=== PATIENT | female | born 1990 | race Caucasian/White ===

== ENCOUNTER → 2020-06-19 13:28 | Outpatient (CLI) | payer BC, SELFPAY ==
--- NOTE | ~2020-06-19 | US_ITS ---
EXAMINATION: US OB <= 14 weeks fetus DATE: 06/19/2020 13:51 INDICATION: Uncertain dating of during first trimester. Mild cramping. TECHNIQUE: Real-time pelvic ultrasound utilizing transabdominal probe was performed. The kaleb novak radiologist was not present for the study. COMPARISON: None. FINDINGS: The uterus measures 14.4 x 6.7 x 6.2 cm. There is an intrauterine gestational sac. A yolk sac and fe argenis pole are identified. The crown rump length measures 5.3 cm, which correlates with an estimated ge stational age of 12 weeks and 0 days. heart motion is identified measuring 187 beats per minute (bpm) by M-mode Doppler. The right ovary measures 4.5 x 4.2 x 3.6 cm. The left ovary measures 2.6 x 2.3 x 2.0 cm. There is no free fluid in the pelvis. IMPRESSION: 1. Single living fetus with heart rate of 187 bpm. 2. Gestational age by ultrasound of 12 weeks 0 day(s) +/- 8 day(s) with ultrasound estimated date of delivery (ANNMARIE) of 01/01/2021. Reviewed, dictated and finalized at location A. SHOP SUPERVISOR IMPRESSION: 1. Single living fetus with heart rate of 187 bpm. 2. Gestational age by ultrasound of 12 weeks 0 day(s) +/- 8 day(s) with ultras ound estimated date of delivery (ANNMARIE) of 01/01/2021.
== END ==
PROVIDERS: PCP Physician Assistant; Visit Provider Obstetrics & Gynecology
DX: Z36.87 Encounter for antenatal screening for uncertain dates (principal); Z3A.12 12 weeks gestation of pregnancy
CPT/HCPCS: 76801

== ENCOUNTER 2020-08-04 13:42 | Outpatient (CLI) | payer BC, SELFPAY ==
--- NOTE | ~2020-08-04 | US_ITS ---
EXAMINATION: US OB >= 14 weeks Fetus DATE: 08/04/2020 14:27 INDICATION: Second trimester anatomic survey TECHNIQUE: Real-time ultrasound of the pelvis was performed. COMPARISON: None. FINDINGS: There is a single living fetus in vertex presentation. The placenta is posterior and 4 mm from the in ternal cervical os. heart rate is 145 beats per minute (bpm). cardiac activity and movement are noted. The amniotic fluid index is subjectively normal. The cerebellum, cisterna magna, upper lip, spine, heart, stomach, diaphragm, and kidneys are suboptim ally evaluated due to body habitus and early gestational age. The the ventricles, bladder, cord inser tion, and three-vessel cord appear normal. The following biometric data were obtained: Biparietal diameter (BPD): 4.1 cm; head circumference (HC): 15.4 cm; abdominal circumference (AC): 13 .2 cm; femur length (FL): 3.3 cm. These measurements are concordant. Estimated weight is 294 g +/- 44 g, which correlates with the 92nd percentile when 01/01/2021 is used as estimated date of delivery. As single measurements, these parameters are each equal to the following estimated gestational ages w ith ranges of +/- 2 standard deviations: BPD: 18 weeks 4 days ( 16 weeks 6 days - 20 weeks 2 days). HC: 18 weeks 3 days ( 17 weeks 0 days - 19 weeks 6 days). AC: 18 weeks 5 days ( 16 weeks 5 days - 20 weeks 5 days). FL: 20 weeks 4 days ( 18 weeks 6 days - 22 weeks 3 days). estimated gestational age based solely on measurements from this exam is 19 weeks 1 days +/- 1 weeks 2 days. IMPRESSION: 1. Single living fetus in vertex presentation. 2. Estimated weight is 294 g +/- 44 g, which correlates with the 92nd percentile when 01/01/2021 is used as estimated date of delivery. 3. Low-lying placenta. 4. Incomplete evaluation of several anatomic structures. Reviewed, dictated and finalized at location A. TS ANNOUNCER IMPRESSION: 1. Single living fetus in vertex presentation. 2. Estimated weight is 294 g +/- 44 g, which correlates with the 92nd per centile when 01/01/2021 is used as estimated date of delivery. 3. Low-lying placenta. 4. Incomplete evaluation of several anatomic structures.
== END 2020-08-04 13:43 ==
PROVIDERS: PCP Physician Assistant; Visit Provider Obstetrics & Gynecology
DX: O44.42 Low lying placenta NOS or without hemorrhage, second trimester (principal); Z3A.19 19 weeks gestation of pregnancy
CPT/HCPCS: 76805

== ENCOUNTER 2020-09-04 13:29 | Outpatient (CLI) | payer BC, SELFPAY ==
--- NOTE | ~2020-09-04 | US_ITS ---
EXAMINATION: US OB follow up DATE: 09/04/2020 14:01 INDICATION: Low-lying placenta, incomplete anatomic survey TECHNIQUE: Real-time ultrasound of the pelvis was performed. The interpreting radiologist was not pre sent for the study. COMPARISON: 08/04/2020 FINDINGS: There is a single living fetus in breech presentation. The placenta is posterior and 4.8 cm from the internal cervical os. cardiac activity and movement are noted. heart rate is 147 beats per minute (bpm). The amniotic fluid index is subjectively normal. The the cerebellum a nd cisterna magna, spine, and kidneys appear normal. A four-chamber heart is demonstrated. The ventri cular outflow tracts are not well seen due to body habitus and position. The following biometric data were obtained: Biparietal diameter (BPD): 5.7 cm; head circumference (HC): 21.3 cm; abdominal circumference (AC): 18 .8 cm; femur length (FL): 4.3 cm. These measurements are concordant. Estimated weight is 637 g +/- 95 g, which correlates with the 83rd percentile when 01/01/2021 is used as estimated date of delivery. As single measurements, these parameters are each equal to the following estimated gestational ages w ith ranges of +/- 2 standard deviations: BPD: 23 weeks 3 days ( 21 weeks 5 days - 25 weeks 1 days). HC: 23 weeks 3 days ( 21 weeks 6 days - 24 weeks 6 days). AC: 23 weeks 5 days ( 21 weeks 4 days - 25 weeks 5 days). FL: 24 weeks 2 days ( 22 weeks 2 days - 26 weeks 3 days). estimated gestational age based solely on measurements from this exam is 23 weeks 5 days +/- 1 weeks 5 days. IMPRESSION: 1. Single living fetus in breech presentation. 2. Resolution of low-lying placenta. 3. Estimated weight is 637 g +/- 95 g, which correlates with the 83rd percentile when 01/01/2021 is used as estimated date of delivery. 4. Visualized cerebellum, cisterna magna, kidneys, and spine appear normal. Four-chamber heart identi fied. Reviewed, dictated and finalized at location A. ATIENT PHLEBOTOMIST IMPRESSION: 1. Single living fetus in breech presentation. 2. Resolution of low-lying placenta. 3. Estimated weight is 637 g +/- 95 g, which correlates with the 83rd per centile when 01/01/2021 is used as estimated date of delivery. 4. Visualized cerebellum, cisterna magna, kidneys, and spine appear normal. Fou r-chamber heart identified.
== END 2020-09-04 13:30 ==
PROVIDERS: PCP Physician Assistant; Visit Provider Obstetrics & Gynecology
DX: Z36.2 Encounter for other antenatal screening follow-up (principal); O44.42 Low lying placenta NOS or without hemorrhage, second trimester; Z3A.32 32 weeks gestation of pregnancy
CPT/HCPCS: 76816

== ENCOUNTER 2020-12-08 17:12 | Outpatient (RCR) | payer BC, SELFPAY ==
[2020-12-08 22:12] VITALS: BP 128/73; PULSE 98
== END 2021-01-22 11:10 | disposition home or self-care (01) ==
LOC: ANHOBOP 17:12
PROVIDERS: PCP Physician Assistant; Visit Provider Obstetrics & Gynecology
DX: O41.03X0 Oligohydramnios, third trimester, not applicable or unspecified (principal); Z3A.38 38 weeks gestation of pregnancy
CPT/HCPCS: 59025

== ENCOUNTER 2020-12-18 17:30 | Inpatient (IN) | payer BC, SELFPAY ==
[2020-12-18] VITALS (50 sets, daily range): BP systolic 111–154; BP diastolic 48–89; PULSE 80–119; TEMP 36.6–37; O2SAT 87–100; BMI 54.5
--- OUTSIDE RECORDS SUMMARY | 2020-12-18 17:43 | XMS_ITS ---
:1990 Author Care Team Providers Name Role Phone Shyla Primary Care Provider Unavailable Allergies Code Code System Name Reaction Severity Status Onset NKDA ? Medications Name Status Start Date Stop Date ? ? amoxicillin 250 mg/5 mL oral suspension Active ? Not available amoxicillin 500 mg capsule Active ? Not a vailable TK 1 C PO TID amoxicillin 875 mg tablet Unknown ? Not av ailable TK 1 T PO Q 12 H amoxicillin 875 mg-potassium clavulanate Active ? Not available 125 mg tablet Carafate 100 mg/mL oral suspension Unknown ? Not available cephalexin 500 mg capsule Active ? Not av ailable ciprofloxacin 500 mg tablet Active ? Not available cyclobenzaprine 10 mg tablet Unknown ? Not available cyclobenzaprine 5 mg tablet Active ? Not available TK 1 T PO TID erythromycin 5 mg/gram (0.5 %) eye ointment Active ? Not available APPLY 1 2 INCH RIBBON TO THE LEFT LOWER EYELID THREE TIMES SHAWN Y FOR 7 DAYS hydrocodone 7.5 mg-acetaminophen 325 mg/15 mL oral solution Acti ve ? Not available TAKE 5 15MLS BYMOUTH EVERY 6 HOURS NEEDED ibuprofen 600 mg tablet Active ? Not avai lable levofloxacin 500 mg tablet Unknown ? Not a vailable medroxyprogesterone 5 mg tablet Active ? Not available metformin ER 500 mg tablet,extended Active ? Not available release 24 hr metformin ER 750 mg tablet,extended Unknown ? Not available release 24 hr omeprazole 40 mg capsule,delayed release Unknown ? Not available
--- OUTSIDE RECORDS SUMMARY | 2020-12-18 17:43 | XMS_ITS ---
:1990 Author Care Team Providers Name Role Phone VIKTORIYA ARENAS BENJY Primary Care Provider [phone] Allergies Code Code System Name Reaction Severity Status Onset NKDA ? Medications Name Status Start Date Stop Date ? ? [employer] Completed ? 09/13/2019 qd amoxicillin 250 mg/5 mL oral suspension Completed ? 05/22/2020 amoxicillin 500 mg capsule Completed ? 12/14 TK 1 C PO TID amoxicillin 875 mg tablet Completed ? 2016 TK 1 T PO Q 12 H amoxicillin 875 mg-potassium Active ? Not available clavulanate 125 mg tablet Carafate 100 mg/mL oral suspension Unknown ? Not available cephalexin 500 mg capsule Completed ? 2019 Take 1 capsule 3 times a day by oral route for 10 days. ciprofloxacin 500 mg tablet Completed ? 08/19 Claritin Completed ? 05/22/2020 takes daily cyclobenzaprine 5 mg tablet Completed ? 11/17 TK 1 T PO TID erythromycin 5 mg/gram (0.5 %) eye ointment Completed ? 05/22/2020 APPLY 1 2 INCH RIBBON TO THE LEFT LOWER EYELID THREE TIMES SHAWN Y FOR 7 DAYS hydrocodone 7.5 mg-acetaminophen 325 mg/15 mL oral solution Comp leted ? 05/22/2020 TAKE 5 15MLS BYMOUTH EVERY 6 HOURS NEEDED ibuprofen 600 mg tablet Completed ? 09/13/19 20 levofloxacin 500 mg tablet Unknown ? Not a vailable medroxyprogesterone 5 mg tablet Unknown ? Not available metformin ER 1,000 mg tablet,ext
--- OUTSIDE RECORDS SUMMARY | 2020-12-18 17:43 | XMS_ITS ---
:1990 Author Care Team Providers Name Role Phone Shyla Primary Care Provider Unavailable Allergies Code Code System Name Reaction Severity Status Onset NKDA ? Medications Name Status Start Date Stop Date ? ? amoxicillin 250 mg/5 mL oral suspension Active ? Not available amoxicillin 875 mg-potassium clavulanate Active ? Not available 125 mg tablet cephalexin 500 mg capsule Active ? Not av ailable ciprofloxacin 500 mg tablet Active ? Not available erythromycin 5 mg/gram (0.5 %) eye ointment Active ? Not available APPLY 1 2 INCH RIBBON TO THE LEFT LOWER EYELID THREE TIMES SHAWN Y FOR 7 DAYS hydrocodone 7.5 mg-acetaminophen 325 mg/15 mL oral solution Acti ve ? Not available TAKE 5 15MLS BYMOUTH EVERY 6 HOURS NEEDED ibuprofen 600 mg tablet Active ? Not avai lable ondansetron 4 mg disintegrating tablet Active ? Not available phenazopyridine 200 mg tablet Active ? No t available prednisone 10 mg tablet Active ? Not avai lable promethazine 25 mg tablet Active ? Not av ailable Problems No Known Problems Procedures Date Name Performed by ? 10/26/2019 Tonsillectomy (Surg) Information not robert ilable Results Lab Results None recorded. Past Encounters 11/06/2019 Chronic Tonsillitis Jack Mansfield MD: [address], [place] [address], Ph. 09/18/2019
[2020-12-18 19:31] LABS: Basophils Absolute Auto 0.1 K/mm3 (0.0-0.1); Basophils Percent Auto 0.3 % (0.2-1.2); Eosinophils Percent Auto 0.1 % (0-4.4); Hematocrit 38.8 % (37.0-47.0); Hemoglobin 12.5 g/dL (12.0-15.0); Immature Granulocyte Absolute 0.14 K/mm3 (0.00-0.031); Immature Granulocyte Percent A 0.6 % (0-0.5); Lymphocytes Absolute Auto 1.13 K/mm3 (0.9-3.2); Lymphocytes Percent Auto 5.1 % (18.3-44.2); Mean Corpuscular HGB Conc 32.2 g/dl (32-36); Mean Corpuscular Hemoglobin 29.3 pg (26-34); Mean Corpuscular Volume 90.9 fl (80-100); Monocytes Absolute Auto 0.9 K/mm3 (0.1-0.6); Monocytes Percent Auto 4.2 % (2.6-8.5); Neutrophils Absolute Auto 20.1 K/mm3 (1.3-6.7); Neutrophils Percent Auto 89.7 % (45.5-73.1); Platelet Count Result 285 k/mm3 (150-375); Red Blood Count 4.27 M/mm3 (4.2-5.4); Red Cell Distribution Width 14.6 % (11.5-14.5); White Blood Count 22.4 K/mm3 (4.5-10.0)
[2020-12-18 19:44] LABS: Alanine Aminotransferase 22 U/L (4-35); Albumin Level 3.9 g/dL (3.5-5.1); Alkaline Phosphatase 147 U/L (38-126); Anion Gap 9 mmol/L (8-16); Aspartate Amino Transferase 29 U/L (14-36); Bilirubin,Total 0.5 mg/dL (0.2-1.3); Blood Urea Nitrogen 8 mg/dL (7-17); Calcium 9.6 mg/dL (8.4-10.2); Carbon Dioxide 18 mmol/L (22-30); Chloride 108 mmol/L (98-107); Estimated Glomerular Filt Rate > 60; Glucose 84 mg/dL (65-105); Potassium 4.2 mmol/L (3.4-5.0); Sodium 135 mmol/L (137-145); Uric Acid 5.6 mg/dL (2.5-7.5)
[2020-12-18 20:10] LABS: Total Volume 24 Hour Urine 1900 ml
[2020-12-18 20:22] LABS: Total Protein Urine 24 Hr 247 mg/24hr (28-141); Total Protein Urine Random 13 mg/dL
[2020-12-18 20:23] LABS: Creatinine 24 Hour Urine 1.7 gm/24 (0.8-1.8); Creatinine Urine 89.6 mg/dL
[2020-12-18] MEDS: LACTATED RINGERS 1,000 ML 125 ML IV CONT ×3 (20:31→22:34)
[2020-12-18] MEDS: AMPICILLIN 2 GM/NS 100 ML 2 GM/100 ML BAG IVPB (20:32)
[2020-12-18] MEDS: OXYTOCIN 30 UNITS/NS 500 ML 30 UNITS/500 ML BAG IV CONT (20:33)
--- NOTE | 2020-12-18 21:09 | WPDANESEPPF ---
Anes - Initial Pre Proc Eval Procedure: labor epidural Date/Time: 12/18/20 21:09 Surgeon: Eldon Sun MD Pre Op Diagnosis: labor pain Pre Op Diagnosis: iol Patient Data Age: 30 Gender: F Height: Weight: Last Vital Signs Temp 36.6 C 12/18/20 20:40 Pulse 104 H 12/18/20 21:03 BP 154/70 H 12/18/20 21:03 Pulse Ox 100 12/18/20 21:07 Allergies Allergy/AdvReac Type Severity Reaction Status Date / Time No Known Allergies Allergy Unknown Unverified 10/25/14 10:41 Laboratory Tests 12/18/20 12/18/20 12/18/20 19:17 19:17 19:24 WBC RBC Hgb Hct MCV MCH MCHC RDW Plt Count MPV Immature Gran % (Auto) Neut % (Auto) Lymph % (Auto) Avery % (Auto) Eos % (Auto) Baso % (Auto) Lymph # (Auto) [place] # (Auto) Eos # (Auto) Baso # (Auto) Abs Immat Gran (auto) Absolute Neuts (auto) Absolute Nucleated RBC Nucleated RBC % Sodium Potassium Chloride Carbon Dioxide Anion Gap BUN Creatinine Estim Creat Clear Calc Estimated GFR Glucose Uric Acid Cancelled Calcium Total Bilirubin AST ALT Alkaline Phosphatase Total Protein Albumin U Random Total Protein 13 mg/dL mg/dL Ur 24 Hour Volume 1900 ml ml 1900 ml ml Urine Creatinine 89.6 mg/dL mg/dL Ur Creatinine 24 Hour 1.7 gm/24 gm/24 (0.8-1.8) Ur Total Protein 24 Hr 247 mg/24hr H mg/24hr (28-141) RPR Blood Type Antibody Screen 12/18/20 12/18/20 12/18/20 19:24 19:24 19:24 WBC 22.4 K/mm3 H K/mm3 (4.5-10.0) RBC 4.27 M/mm3 M/mm3 (4.2-5.4) Hgb 12.5 g/dL g/dL (12.0-15.0) Hct 38.8 % % (37.0-47.0) MCV 90.9 fl fl (80-100) MCH 29.3 pg pg (26-34) MCHC 32.2 g/dl g/dl (32-36) RDW 14.6 % H % (11.5-14.5) Plt Count 285 k/mm3 k/mm3 (150-375) MPV 10.0 fl fl (7.4-10.4) Immature Gran % (Auto) 0.6 % H % (0-0.5) Neut % (Auto) 89.7 % H % (45.5-73.1) Lymph % (Auto) 5.1 % L % (18.3-44.2) Avery % (Auto) 4.2 % % (2.6-8.5) Eos % (Auto) 0.1 % % (0-4.4) Baso % (Auto) 0.3 % % (0.2-1.2) Lymph # (Auto) 1.13 K/mm3 K/mm3 (0.9-3.2) Avery # (Auto) 0.9 K/mm3 H K/mm3 (0.1-0.6) Eos # (Auto) 0.0 K/mm3 K/mm3 (0-0.3) Baso # (Auto) 0.1 K/mm3 K/mm3 (0.0-0.1) Abs Immat Gran (auto) 0.14 K/mm3 H K/mm3 (0.00-0.031) Absolute Neuts (auto) 20.1 K/mm3 H K/mm3 (1.3-6.7) Absolute Nucleated RBC 0.0 K/mm3 K/mm3 (0.0-0.012) Nucleated RBC % 0.0 % % (0.0-0.2) Sodium Potassium Chloride Carbon Dioxide Anion Gap BUN Creatinine Estim Creat Clear Calc Estimated GFR Glucose Uric Acid Calcium Total Bilirubin AST ALT Alkaline Phosphatase Total Protein Albumin U Random Total Protein Ur 24 Hour Volume Urine Creatinine Ur Creatinine 24 Hour Ur Total Protein 24 Hr RPR Pending Blood Type A Positive Antibody Screen Negative 12/18/20 19:24 WBC RBC Hgb Hct MCV MCH MCHC RDW Plt Count MPV
--- NOTE | 2020-12-18 22:19 | LDADM ---
This patient, Anahi Mayes, was admitted to Labor/Delivery/Recovery 106 on 12/18/20 at 17:30. Plans for labor, pain management and were discussed with patient. Patient/family oriented to hospital policies and general routines including ID bracelet, bed and alarms, visiting hours, pain management, procedures, bathroom and other care routines, personal items, smoking policy, room service/diet and guest tray routines, security routines, and visiting hours. Patient/Family are encouraged to report perceived risks to care and to ask questions if they do not understand what they are told or what they should do. See OBIX for further documentation.
[2020-12-19] VITALS (34 sets, daily range): BP systolic 92–150; BP diastolic 46–98; PULSE 81–141; RESP 16–20; TEMP 36.6–37.2; O2SAT 98–100
[2020-12-19] MEDS: AMPICILLIN 1 GM/NS 50 ML 1 GM/50 ML BAG IVPB (00:17)
--- NOTE | 2020-12-19 01:18 | WPDOBADMIT ---
Obstetrics - Admit Note Admission Note: record reviewed. No pertinent additions to the history and/or any subsequent changes in the physical findings that are not consistent with the expected course of the were found. Additions to the history and/or subsequent changes in the physical findings follow. Patient saw MFM today and JARETT was 4.5 so they recommended [facility]. Patient on arrival for [facility] states SROM at 1030 am and kenzie all day. She was 7 cm on first check. Progressed on own without Pitocin.
--- NOTE | 2020-12-19 01:19 | P.PCNOB_ITS ---
OB - Delivery Note Procedure Delivery date: 12/19/20 Procedure: Intrapartal events: None Delivery monitor: external FHT and internal uterine Route of delivery: Laceration Description: Perineal - 2nd Degree Delivery repair: vicryl (3-0 vicryl) Specimen: Yes (placenta) Quantitative Blood Loss (ml): 225 Anesthesia type: Epidural Disposition: floor Seltzer Baby Date of : 12/19/20 Weeks of gestation at delivery: 37 gender: Male presentation: vertex position: Right Occiput Anterior Placenta delivery description: Spontaneous cord vessel description: 3 Vessels and Nuchal Cord (x 1 reduced)
--- NOTE | 2020-12-19 01:21 | PM.OBDSVD ---
DS: Admitting Diagnosis Admitting Diagnosis Admitting Diagnosis: IUP 37 5/7 weeks with SROM in active labor DS: Discharge Diagnosis Discharge Diagnosis (1) (normal spontaneous vaginal delivery): Code(s): O80 - Encounter for full-term uncomplicated delivery Status: Acute OB - DS: Summary OB Procedures : DOCUMENT CONTROL SUPERVISOR and PIH Mgmt OB Procedures Intrapartum: Spontaneous Vag Delivery OB Procedures: : None Peripartum Data Delivery Method: Natural Vaginal Laceration Description: Perineal - 2nd Degree complications: none Status at Discharge Functional status at discharge: independent ambulation Overall status at discharge: patient is progressing back to baseline Time Spent with Patient Time attestation: Total time spent providing and/or coordinating discharge services: DS: Data Data Completed and Pending Labs on day of discharge: Labs from last 24 hours 12/18/20 12/18/20 12/18/20 19:24 19:24 19:24 WBC RBC Hgb Hct MCV MCH MCHC RDW Plt Count MPV Immature Gran % (Auto) Neut % (Auto) Lymph % (Auto) [place] % (Auto) Eos % (Auto) Baso % (Auto) Lymph # (Auto) [place] # (Auto) Eos # (Auto) Baso # (Auto) Abs Immat Gran (auto) Absolute Neuts (auto) Absolute Nucleated RBC Nucleated RBC % Sodium 135 L Potassium 4.2 Chloride 108 H Carbon Dioxide 18 L Anion Gap 9 BUN 8 Creatinine 0.50 L Estim Creat Clear Calc Not Reportable Estimated GFR > 60 Glucose 84 Uric Acid 5.6 Calcium 9.6 Total Bilirubin 0.5 AST 29 ALT 22 Alkaline Phosphatase 147 H Total Protein 8.0 Albumin 3.9 U Random Total Protein Ur 24 Hour Volume Urine Creatinine Ur Creatinine 24 Hour Ur Total Protein 24 Hr RPR Pending Blood Type A Positive Antibody Screen Negative 12/18/20 12/18/20 12/18/20 19:24 19:24 19:17 WBC 22.4 H RBC 4.27 Hgb 12.5 Hct 38.8 MCV 90.9 MCH 29.3 MCHC 32.2 RDW 14.6 H Plt Count 285 MPV 10.0 Immature Gran % (Auto) 0.6 H Neut % (Auto) 89.7 H Lymph % (Auto) 5.1 L [place] % (Auto) 4.2 Eos % (Auto) 0.1 Baso % (Auto) 0.3 Lymph # (Auto) 1.13 [place] # (Auto) 0.9 H Eos # (Auto) 0.0 Baso # (Auto) 0.1 Abs Immat Gran (auto) 0.14 H Absolute Neuts (auto) 20.1 H Absolute Nucleated RBC 0.0 Nucleated RBC % 0.0 Sodium Potassium Chloride Carbon Dioxide Anion Gap BUN Creatinine Estim Creat Clear Calc Estimated GFR Glucose Uric Acid Cancelled Calcium Total Bilirubin AST ALT Alkaline Phosphatase Total Protein Albumin U Random Total Protein 13 Ur 24 Hour Volume 1900 Urine Creatinine Ur Creatinine 24 Hour Ur Total Protein 24 Hr 247 H RPR Blood Type Antibody Screen 12/18/20 19:17 WBC RBC Hgb Hct MCV MCH MCHC RDW Plt Count MPV Immature Gran % (Auto) Neut % (Auto) Lymph % (Auto) [place] % (Auto) Eos % (Auto) Baso % (Auto) Lymph # (Auto) [place] # (Auto) Eos # (Auto) Baso # (Auto) Abs Immat Gran (auto) Absolute Neuts (auto) Absolute Nucleated RBC Nucleated RBC % Sodium Potassium Chloride Carbon Dioxide Anion Gap BUN Creatinine Estim Creat Clear Calc Estimated GFR Glucose Uric Acid Calcium Total Bilirubin AST ALT Alkaline Phosphatase Total Protein Albumin U Random Total Protein Ur 24 Hour Volume 1900 Urine Creatinine 89.6 Ur Creatinine 24 Hour 1.7 Ur Total Protein 24 Hr RPR Blood Type Antibody Screen Discharge Plan Discharge Attending physician on discharge: Eldon Sun Discharging Clinician: Danii Valderrama Anticipated Discharge Date/Time: 12/21/20 01:23 Patient Disposition: Home, Self-Care Activity: may shower and pelvic rest Diet: regular Discharge Instructions: Education:
[2020-12-19] MEDS: OXYTOCIN 30 UNITS/NS 500 ML 30 UNITS/500 ML BAG 125 UNITS IV CONT (01:42)
[2020-12-19] MEDS: BENZOCAINE 20% AER SPR (*SP) 56 GM CAN 1 SPRAY TOPICAL (03:22)
[2020-12-19] MEDS: WITCH HAZEL 40 PADS 1 PAD TOPICAL (03:22)
[2020-12-19] MEDS: IBUPROFEN 600 MG TABLET PO ×2 (07:03→17:01)
[2020-12-19] MEDS: DOCUSATE SODIUM 100 MG CAPSULE PO (07:03)
[2020-12-19] MEDS: MULTIVIT/MIN/PREN/FOL AC/IRON TABLET 1 TAB PO (07:04)
[2020-12-19 08:03] LABS: Rapid Plasma Reagin Non-Reactive (NonReactive)
[2020-12-19] MEDS: POLYSACCHARIDE IRON COMPLEX 150 MG CAPSULE PO (17:01)
[2020-12-20 00:26] VITALS: BP 135/71; PULSE 102; RESP 18; TEMP 36.4; O2SAT 99
[2020-12-20 00:27] VITALS: PULSE 102; RESP 18; O2SAT 99
[2020-12-20] MEDS: IBUPROFEN 600 MG TABLET PO ×2 (04:46→11:11)
[2020-12-20 05:26] LABS: Hematocrit 32.7 % (37.0-47.0); Hemoglobin 10.5 g/dL (12.0-15.0)
--- NOTE | 2020-12-20 07:00 | PC.NURSE ---
PT introductions made and plan of care discussed per post , pain management, bottle feeding, daily care activities and pending discharge to home. PT received education and instructions per one to one discussion, demonstration, and mom baby care guide. PT and fob recipients of such instructions and no barriers to learning identified. PT verbalized understanding of such care.
--- NOTE | 2020-12-20 10:02 | WPDANLDPN2 ---
Anes-Prog Note L&D Date/Time: 12/20/20 10:02 Comfortable throughout: labor and delivery Neuraxial method: epidural Epidural/Spinal procedure site: clean & non-tender Neuro status: Neuro function grossly intact. Cardiovascular status: normal Respiratory status: normal Airway patency: baseline Mental status: baseline Post-Op hydration status: normal Vital Signs: Last Vital Signs Temp 36.4 C L 12/20/20 00:26 Pulse 102 H 12/20/20 00:27 Resp 18 12/20/20 00:27 BP 135/71 12/20/20 00:26 Pulse Ox 99 12/20/20 00:27 Pain score (VAS): 07/27 Post-procedural complaints: none Patient feedback: Patient satisfied with anesthetic care.
[2020-12-20 11:00] VITALS: BP 136/76; PULSE 92; RESP 18; TEMP 36.4; O2SAT 100
[2020-12-20] MEDS: DOCUSATE SODIUM 100 MG CAPSULE PO (11:11)
--- NOTE | 2020-12-20 12:32 | PM.OBPNVD ---
OB - PN: Subj Subjective Date/time seen: 12/20/20 12:32 doing well desires home today OB - PN: Obj Data Labs CBC & Chem 7: 12/20/20 04:51 12/18/20 19:24 Labs: Laboratory Results - last 24 hr 12/20/20 04:51 Hgb 10.5 L Hct 32.7 L OB - PN A/P Assessment and Plan (1) (normal spontaneous vaginal delivery): Code(s): O80 - Encounter for full-term uncomplicated delivery Status: Acute Assessment and Plan: mild tachycardia afebrile. patient to push fluids and take temperature twice a day with f/u in 24-48 hours. Time Spent With Patient Time: Total time spent is greater than 50% in coordination of care (as documented) at patient's floor/unit and/or counseling patient: Exam Narrative: Exam Narrative: ff below umbilicus mildly tender
--- NOTE | 2020-12-20 15:00 | PC.NURSE ---
PT received discharge instructions per protocol and verbalized understanding of such instructions.
[2020-12-22 08:52] VITALS: BP 126/77; PULSE 87; RESP 20; TEMP 36.8; O2SAT 100
== END 2020-12-20 15:57 | disposition home or self-care (01) | DRG 807 ==
LOC: ANHLDR 12-19 01:23 → ANHOB2 12-19 03:51
PROVIDERS: Admitting Provider Obstetrics & Gynecology Gynecology; PCP Physician Assistant; Visit Provider Obstetrics & Gynecology
DX: O76 Abnormality in fetal heart rate and rhythm complicating labor and delivery (principal); Z37.0 Single live birth; O70.1 Second degree perineal laceration during delivery; O69.1XX0 Labor and delivery complicated by cord around neck, with compression, not applicable or unspecified; Z3A.37 37 weeks gestation of pregnancy
CPT/HCPCS: 36415; 80053; 81050; 82570; 84156; 84550; 85014; 85018; 85025; 86592; 86850; 86900; 86901; 88307; A9270; J0290; J2590; J7120

== ENCOUNTER → 2021-07-17 01:23 | Outpatient (CLI) | payer OTHER, SELFPAY ==
[2021-07-17 20:43] LABS: SARS-CoV-2 RNA PCR Positive
== END ==
PROVIDERS: PCP Physician Assistant; Visit Provider Physician Assistant
DX: U07.1 COVID-19 (principal)
CPT/HCPCS: C9803; U0003; U0005

== ENCOUNTER → 2021-08-03 00:46 | Outpatient (CLI) | payer OTHER, SELFPAY ==
[2021-08-04 10:58] LABS: SARS-CoV-2 RNA PCR Negative
== END ==
PROVIDERS: PCP Physician Assistant; Visit Provider Physician Assistant
DX: R68.89 Other general symptoms and signs (principal); Z20.822 Contact with and (suspected) exposure to COVID-19
CPT/HCPCS: C9803; U0003; U0005

== ENCOUNTER 2022-04-07 09:02 | Emergency (ER) | payer OTHER, SELFPAY ==
--- NOTE | ~2022-04-07 | CT_ITS ---
EXAMINATION: CT abdomen pelvis w con DATE: 04/07/2022 09:49 INDICATION: Right upper quadrant abdominal pain TECHNIQUE: Computed tomography (CT) of the abdomen and pelvis was performed with 100 CC Omnipaque 350 intravenous contrast. Automated exposure control and iterative reconstruction technique were employe d. Exam dose: 1572.38 mGy-cm total exam DLP. COMPARISON: None. FINDINGS: The lung bases are clear. Heart size is within normal range. No pericardial or pleural effu pillo. The liver, gallbladder, bile ducts, spleen, pancreas, and adrenal glands and kidneys are unremarkable . No urinary tract calculus or hydroureteronephrosis. The urinary bladder, uterus and adnexal areas a re unremarkable with the exception of approximately 3 cm right ovarian cyst. Normal caliber of the abdominal aorta. No intraperitoneal or retroperitoneal or pelvic mass lesion or adenopathy or ascites. Normal appendix. No bowel obstruction or intraperitoneal free air. Approximately 2.1 cm wide mouth of a fat containing umbilical hernia, measuring 4.6 cm transverse, 5 cm AP dimension. There is nonspecific mildly increased density of the herniated fat, which may indic ated some inflammation. Included skeletal structures are unremarkable. IMPRESSION: Fat-containing umbilical hernia; mildly increased density of the fat may indicate inflam mation Normal appendix 3 cm right ovarian cyst Reviewed, dictated and finalized at [facility]. Reviewed, dictated and finalized at location B. IMPRESSION: Fat-containing umbilical hernia; mildly increased density of the f at may indicate inflammation Normal appendix 3 cm right ovarian cyst
[2022-04-07 09:18] VITALS: BP 121/88; PULSE 94; RESP 17; TEMP 36.6; O2SAT 100
[2022-04-07 09:23] LABS: Basophils Absolute Auto 0.1 K/mm3 (0.0-0.1); Basophils Percent Auto 1.1 % (0.2-1.2); Eosinophils Absolute Auto 0.3 K/mm3 (0-0.3); Eosinophils Percent Auto 2.7 % (0-4.4); Hemoglobin 12.4 g/dL (12.0-15.0); Immature Granulocyte Absolute 0.02 K/mm3 (0.00-0.031); Immature Granulocyte Percent A 0.2 % (0-0.5); Lymphocytes Absolute Auto 2.01 K/mm3 (0.9-3.2); Lymphocytes Percent Auto 19.9 % (18.3-44.2); Mean Corpuscular HGB Conc 32.6 g/dl (32-36); Mean Corpuscular Hemoglobin 28.4 pg (26-34); Mean Corpuscular Volume 87.2 fl (80-100); Mean Platelet Volume 9.4 fl (7.4-10.4); Monocytes Absolute Auto 0.5 K/mm3 (0.1-0.6); Monocytes Percent Auto 4.5 % (2.6-8.5); Neutrophils Absolute Auto 7.3 K/mm3 (1.3-6.7); Neutrophils Percent Auto 71.6 % (45.5-73.1); Platelet Count Result 362 k/mm3 (150-375); Red Blood Count 4.36 M/mm3 (4.2-5.4); Red Cell Distribution Width 13.2 % (11.5-14.5); White Blood Count 10.1 K/mm3 (4.5-10.0)
--- NOTE | 2022-04-07 09:24 | ED.ABDPAIN ---
HPI - Abdominal Pain General Chief Complaint: Abdominal Pain Stated Complaint: RLQ pain Time Seen by Provider: 04/07/22 09:06 Source: RN notes reviewed History of Present Illness HPI narrative: Patient presents emergency room from home for abdominal pain. Patient states the pain is located in the right upper quadrant does not radiate described as sharp and stabbing and has been present for the past 4 days. Patient states the pain is worse with movement and improves with rest she denies any fevers or chills nausea vomiting diarrhea or any other symptoms states she took ibuprofen for the pain yesterday but does not take anything today Related Data Home Medications Medication Instructions Recorded Confirmed ergocalciferol (vitamin D2) 1,250 1,250 mcg DAILY 12/19/20 12/19/20 mcg (50,000 unit) capsule [id number] 1 mg 1 tablet PO DAILY 12/19/20 12/19/20 tablet Allergies Allergy/AdvReac Type Severity Reaction Status Date / Time No Known Allergies Allergy Unknown Verified 04/07/22 09:22 Review of Systems Review of Systems: Gen.: Denies fevers or chills ENT: Denies congestion Respiratory: Denies shortness of breath or cough CV: Denies chest pain or palpitations GI: see HPI denies burning, urgency, frequency or hematuria Musculoskeletal: Denies back pain or muscle pain Neuro: Denies numbness, tingling, weakness or focal weakness Skin: Denies rash Except as documented, all other systems reviewed and negative [facility] Past Medical History Medical History (Updated 04/07/22 @ 10:34 by Antonio Sylvester DO) Patient denies significant medical history Family History Family History (Updated 12/18/20 @ 21:12 by Faiza Case RN) Grandparent Diabetes mellitus Social History Social History Smoking status: Never smoker Spiritual care concerns: No Exam Narrative: APPEARANCE: No acute distress, nontoxic, resting in bed EYES: EOMI HEENT: Normocephalic, atraumatic, OMM RESPIRATORY: No respiratory distress Clear to auscultation bilaterally with no rhonchi wheezing or rales. CARDIOVASCULAR: Regular rate and rhythm without murmurs rubs or gallops. ABDOMINAL: Soft, nondistended tender palpation epigastric and right upper quadrant no tenderness left upper quadrant, left lower quadrant and right lower quadrant no rebound or guarding periumbilical hernia that is soft and reducible MUSCULOSKELETAl: Moves all extremities. No clubbing, cyanosis or edema. NEURO: Awake and alert. Following commands, speech normal, no focal deficits SKIN:: Warm, dry. No rashes lesions or abrasions PSYCHIATRIC: Normal affect/mood, Course Course Emergency Course: Patient states that they are feeling much better at this time. States abdominal pain has improved. Repeat abdominal exam shows the patient's abdomen to be soft with no surgical abdomen present. Discussed with patient results of workup and diagnosis. Discussed need for follow-up with primary care physician, reasons to return to the emergency department in proper use of medication. Patient understands and agrees to current treatment plan discussed with patient her hernia she has had this for some time will refer for surgery discussed her ovarian cyst she follows with Dr. Valderrama Vital Signs Vital signs: Vital Signs Temperature 97.8 F 04/07/22 09:18 Pulse Rate 94 04/07/22 09:18 Respiratory Rate 17 04/07/22 09:18 Blood Pressure 121/88 04/07/22 09:18 Pulse Oximetry 100 04/07/22 09:18 Oxygen Delivery Room Air 04/07/22 09:18 Temperature 97.8 F 04/07/22 09:18 Pulse Rate 82 04/07/22 10:18 Respiratory Rate 15 04/07/22 10:18 Blood Pressure 133/86 04/07/22 10:18 Pulse Oximetry 100 04/07/22 10:18 Oxygen Delivery Room Air 04/07/22 09:18 MDM - Abdominal Pain MDM Narrative Medical decision making narrative: Patient's abdomen is soft without significant pain or signs
[2022-04-07] MEDS: KETOROLAC 30 MG/ML VIAL (*BKC) IV PUSH (09:31)
[2022-04-07] MEDS: SODIUM CHLORIDE 0.9% IV 1,000 ML 999 ML IV CONT (09:32)
[2022-04-07 09:35] LABS: Alanine Aminotransferase 20 U/L (6-35); Alkaline Phosphatase 66 U/L (38-126); Anion Gap 8 mmol/L (8-16); Aspartate Amino Transferase 21 U/L (14-36); Bilirubin,Total 0.4 mg/dL (0.2-1.3); Blood Urea Nitrogen 11 mg/dL (7-17); Calcium 8.7 mg/dL (8.4-10.2); Carbon Dioxide 25 mmol/L (22-30); Chloride 104 mmol/L (98-107); Estimated CRCL calculation 132 ml/min; Estimated Glomerular Filt Rate > 60; Glucose 97 mg/dL (65-110); Lipase 66 U/L (23-300); Potassium 3.8 mmol/L (3.4-5.0); Sodium 137 mmol/L (137-145)
[2022-04-07 09:45] LABS: Appearance Urine Clear (Clear); Bilirubin Urine Negative (Negative); Blood Urine Negative (Negative); Color Urine Yellow (Yellow); Glucose Urine UA Negative (Negative); Ketones Urine Negative (Negative); Leukocyte Esterase Ur Negative LEU/UL (Negative); Nitrate Urine Negative (Negative); Protein Urine Negative (Negative); Urobilinogen Urine 0.2 mg/dL (<2.0)
[2022-04-07 09:59] LABS: Add Urine Microscopic? NO
[2022-04-07 10:18] VITALS: BP 133/86; PULSE 82; RESP 15; O2SAT 100
== END 2022-04-07 11:07 | disposition home or self-care (01) ==
PROVIDERS: Emergency Provider Emergency Medicine; PCP Physician Assistant
DX: R10.11 Right upper quadrant pain (principal); N83.201 Unspecified ovarian cyst, right side; K42.9 Umbilical hernia without obstruction or gangrene
CPT/HCPCS: 36415; 74177; 80053; 81003; 81025; 83690; 85025; 96361; 96374; 99284; J1885; J7030; Q9967

== ENCOUNTER 2022-05-20 13:34 | Outpatient (CLI) | payer OTHER, SELFPAY ==
--- NOTE | ~2022-05-20 | US_ITS ---
EXAMINATION: US pelvic complete w TV DATE: 05/20/2022 14:18 INDICATION: Ovarian cysts on CT examination. Comparison:CT dated 04/07/2022 TECHNIQUE: Multiple transabdominal and endovaginal sonographic images of the pelvis performed. FINDINGS: The uterus measures 7.4 x 3.4 x 5 cm. The endometrial complex measures 9 mm. The right ovary measures 3 x 2.5 x 2.6 cm and the left ovary measures 2.6 x 2.5 x 2.5 cm. There are small follicles in each ovary. Normal doppler signal in both ovaries. There is no free fluid in the pelvis. There are no abnormal masses seen on either side. IMPRESSION: 1. Unremarkable pelvic ultrasound. Reviewed, dictated and finalized at location A.
== END 2022-05-20 13:35 | disposition home or self-care (01) ==
PROVIDERS: PCP Physician Assistant; Visit Provider Obstetrics & Gynecology Gynecology
DX: N83.201 Unspecified ovarian cyst, right side (principal)
CPT/HCPCS: 76830; 76856

== ENCOUNTER 2022-09-08 08:16 | Outpatient (CLI) | payer OTHER, SELFPAY ==
--- NOTE | ~2022-09-08 | CT_ITS ---
CT Abdomen and Pelvis with contrast. History: Ventral hernia. Spiral CT of the abdomen and pelvis was performed after the administration of intravenous contrast. 1 00 cc of Omnipaque 350 was administered intravenously without complication. Dose reduction technique was used on this scan by utilizing automated exposure control and iterative reconstruction technique. The dose-length product (DLP) was 1120.54 mGy-cm. COMPARISON: 04/07/2022 Findings: Scans through the lung bases demonstrate probable focal small impacted airway or atelectati c change at the left lung base. The liver, spleen, pancreas, gallbladder, adrenals and kidneys are within normal limits. No evidence of aortic aneurysm. No lymphadenopathy is seen. There is no evidence of bowel obstruction. There is no evidence to suggest acute appendicitis or dive rticulitis. Moderate to large fat-containing umbilical hernia present. No bowel involvement. No fluid in the hernia sac. Images through the pelvis were performed. Urinary bladder unremarkable. No adnexal mass seen. No asci tre is seen. Impression: Moderate to large fat-containing umbilical hernia, similar to prior exam. Reviewed, dictated and finalized at [facility]. GER BEHAVIOR Impression: Moderate to large fat-containing umbilical hernia, similar to prior exam.
== END 2022-09-08 08:17 ==
LOC: MICIMG 08:18
PROVIDERS: PCP Physician Assistant; Visit Provider Physician Assistant
DX: K42.9 Umbilical hernia without obstruction or gangrene (principal)
CPT/HCPCS: 74177; Q9967

== ENCOUNTER 2022-09-15 15:57 | Outpatient (CLI) | payer OTHER, SELFPAY ==
--- NOTE | ~2022-09-15 | XR_ITS ---
EXAMINATION: XR chest 2V 09/15/2022 16:24 INDICATION: Atelectasis. PROCEDURE: 2 view chest COMPARISON: 10/28/2011 FINDINGS: The lungs are clear. The cardiomediastinal silhouette is within normal limits. There are no pleural effusions. There is no pneumothorax suspected. IMPRESSION: 1: NO ACUTE CARDIOPULMONARY DISEASE. Reviewed, dictated and finalized at location B. AL TECHNOLOGIST
== END 2022-09-15 15:58 ==
LOC: MICIMG 16:03
PROVIDERS: PCP Physician Assistant; Visit Provider Physician Assistant
DX: J98.11 Atelectasis (principal)
CPT/HCPCS: 71046

== ENCOUNTER 2023-02-15 18:10 | Emergency (ER) | payer OTHER, SELFPAY ==
--- NOTE | 2023-02-15 18:15 | ED.UPPEXIN ---
HPI - Extremity Injury (Upper) General Stated Complaint: Right wrist pain Source: patient and RN notes reviewed History of Present Illness HPI narrative: 32 yo F presents to urgent care with complaints of a red, tender, area to her right hand. Pt states she first noticed the area in the middle of the night last night when she was using the bathroom and her dorsal hand hit or tapped the countertop, causing pain. Pt states she didn't think she hit the countertop very hard at all and she suspects she might have been bitten by something. Pt states she has some associated right hand swelling, some numbness and tingling to the area, and her FA is starting to have some pain shoot up. Denies any fevers, chills, chest pain, or SOB. Related Data Home Medications Medication Instructions Recorded Confirmed ergocalciferol (vitamin D2) 1,250 1,250 mcg DAILY 12/19/20 12/19/20 mcg (50,000 unit) capsule [id number] 1 mg 1 tablet PO DAILY 12/19/20 12/19/20 tablet Allergies Allergy/AdvReac Type Severity Reaction Status Date / Time No Known Allergies Allergy Unknown Verified 04/07/22 09:22 Review of Systems Review of Systems: CONSTITUTIONAL: Denies fever, chills, or sweats. EYES: Denies visual changes, redness, or discharge. ENT: Denies otalgia and sore throat CARDIOVASCULAR: Denies chest pain, palpitations, or edema. RESPIRATORY: Denies cough or dyspnea. GASTROINTESTINAL: Denies abdominal pain, nausea, vomiting, or diarrhea. GENITOURINARY: Denies dysuria or hematuria. SKIN: red, tender, area to right hand MUSCULOSKELETAL: Denies back pain, joint pain, or myalgia. NEUROLOGIC: Denies headache, numbness, or weakness. Pertinent positives per HPI. FOR[facility]LY [facility] Past Medical History Medical History (Updated 02/15/23 @ 18:29 by Rekha Weems APRN) Patient denies significant medical history Family History Family History (Updated 12/18/20 @ 21:12 by Faiza Case RN) Grandparent Diabetes mellitus Social History Social History Smoking status: Never smoker Spiritual care concerns: No Comments At the time of my signature, I reviewed and agree with the nursing past medical, surgical, social, and family history. There is no relevant family history pertinent to the patient complaint. Exam Narrative: GENERAL: This is a well-nourished, well-developed patient, in no apparent distress. HEAD: normocephalic, atraumatic. EYES: Sclera clear/white. Vision is grossly intact. EARS: External ears normal, auditory canals clear and without drainage. Hearing grossly intact. NOSE: External nose normal with no obvious nasal discharge, nares without redness, no rhinorrhea. THROAT: Mucous membranes moist, posterior pharynx clear. NECK: Neck supple, non-tender without lymphadenopathy, masses or thyromegaly. CARDIOVASCULAR: Regular rate and rhythm without murmurs, gallops, or rubs. RESPIRATORY: Clear to auscultation. Breath sounds equal bilaterally. No wheezes, rales, or rhonchi. GASTROINTESTINAL: Abdomen soft, non-tender, nondistended. Bowel sounds are active. No hepato-splenomegaly, or palpable masses. No guarding. SKIN: 2 cm, circular, area of erythremia to right dorsal hand. NEURO: awake, alert, and oriented to person, place and time. There were no obvious focal neurologic abnormalities. EXTREMITIES: No clubbing, cyanosis, or edema. No joint tenderness, effusion, or edema noted. Course Course Level of Care: Express Care Visit Vital Signs Vital signs: Vital Signs Temperature 97.6 F 02/15/23 18:18 Pulse Rate 83 02/15/23 18:18 Respiratory Rate 18 02/15/23 18:18 Blood Pressure 140/81 02/15/23 18:18 Pulse Oximetry 100 02/15/23 18:18 Oxygen Delivery Room Air 02/15/23 18:18 Temperature 97.6 F 02/15/23 18:18 Pulse Rate 83 02/15/23 18:18 Respiratory Rate 18 02/15/23 18:18 Blood Pressure 140/81 02/15/23 18:18 Pu
[2023-02-15 18:18] VITALS: BP 140/81; PULSE 83; RESP 18; TEMP 36.4; O2SAT 100
== END 2023-02-15 18:33 | disposition home or self-care (01) ==
PROVIDERS: Emergency Provider Nurse Practitioner Family; PCP Physician Assistant
DX: S60.561A Insect bite (nonvenomous) of right hand, initial encounter (principal); W57.XXXA Bitten or stung by nonvenomous insect and other nonvenomous arthropods, initial encounter
CPT/HCPCS: 99213; G0463

== ENCOUNTER 2023-10-07 19:03 | Emergency (ER) | payer OTHER, SELFPAY ==
--- NOTE | 2023-10-07 19:08 | ED.EAR ---
HPI - Ear Problem General Chief complaint: Ear Stated complaint: Left Earache Time Seen by Provider: 10/07/23 19:15 Source: patient and RN notes reviewed Mode of arrival: ambulatory Limitations: no limitations History of Present Illness HPI Narrative: 32-year-old female presents with concern for left earache. Reports symptoms started on Tuesday. She reports feels like she has fluid in her ear. She denies sinus symptoms or cold flu symptoms MD Complaint: ear pain Related Data Home Medications Medication Instructions Recorded Confirmed cetirizine 10 mg tablet (Zyrtec) 10 mg PO DAILY 10/07/23 10/07/23 drospirenone 3 mg-ethinyl 1 tablet PO DAILY 10/07/23 10/07/23 estradiol 0.03 mg tablet (Anna Marie) Allergies Allergy/AdvReac Type Severity Reaction Status Date / Time No Known Allergies Allergy Unknown Verified 10/07/23 19:11 Review of Systems Review of Systems: CONSTITUTIONAL: Denies malaise, chills, sweats, or fever. EYES: Denies visual changes, redness, or discharge. ENT: Denies rhinorrhea, congestion, sinus pain, and sore throat. Reports left ear pain CARDIOVASCULAR: Denies chest pain, palpitations, or edema. RESPIRATORY: Denies cough. Denies dyspnea. GASTROINTESTINAL: Denies abdominal pain, nausea, vomiting, diarrhea SKIN: Denies rash or itching. MUSCULOSKELETAL: Denies myalgia. NEUROLOGIC: Denies headache. All systems reviewed & are unremarkable except as noted in HPI and below PMFSH Past Medical History Medical History (Updated 10/07/23 @ 19:21 by Katie Ybarra NP) Patient denies significant medical history Family History Family History (Updated 12/18/20 @ 21:12 by Faiza Case RN) Grandparent Diabetes mellitus Social History Social History Smoking status: Never smoker Spiritual care concerns: No Comments At time of signature, agree with nursing past medical, surgical, social and family history. There is no relevant family history pertinent to the presenting complaint Exam Narrative: GENERAL: Well-appearing, well-nourished, and in no acute distress. HEAD: Normocephalic EYES: PERRLA, conjunctivae clear ENT: Nares clear, turbinates edematous, clear discharge. Mucous membranes moist. TM pearly cheng with dull light reflex left, sharp light reflex on the right; no tragal tenderness. Oropharynx not erythematous without lesions. Tonsils not enlarged and without exudate, no drooling, no hoarseness, no trismus, uvula midline. NECK: Supple. No lymphadenopathy CHEST: Clear to auscultation, breath sounds equal. No wheezing, rhonchi, rales, or stridor. No respiratory distress, speaks in full sentences. HEART: Regular rate and rhythm. No murmur heard. SKIN: Warm, dry, no rash. NEURO: Alert and oriented x3. PSYCH: Normal mood and affect Course Course Emergency Course: Patient is aware of diagnosis, understands and agrees to treatment plan. Anticipatory guidance given. Patient agrees to follow-up as directed and is aware of reasons to seek care at the emergency department. Portions of this record may have been created with voice recognition software Level of Care: Express Care Visit Vital Signs Vital signs: Reviewed. Medical Decision Making MDM Narrative Medical decision making narrative: Differential diagnosis considered: Holder virus, strep pharyngitis, allergic rhinitis, upper respiratory tract infection, sinusitis, rhinosinusitis, nasopharyngitis. viral pharyngitis, otitis media, otitis externa, otitis effusion, cerumen impaction, foreign body. Exam findings show no acute concerns or changes; patient is non-toxic appearing and is in no distress. Patient is appropriate for outpatient treatment and follow-up. Critical Care Time Critical Care Time Critical Care Time: No Discharge Plan Discharge Clinical Impression: Fluid collection of middle ear Patient Disposition: Home, Self-Care Condition: Stable
[2023-10-07 19:10] VITALS: BP 126/91; PULSE 97; RESP 16; TEMP 36.3; O2SAT 100
[2023-10-07 19:14] VITALS: BP 126/91; PULSE 97; RESP 16; TEMP 36.3; O2SAT 100
== END 2023-10-07 19:27 | disposition home or self-care (01) ==
PROVIDERS: Emergency Provider Nurse Practitioner; PCP Family Medicine
DX: H74.8X2 Other specified disorders of left middle ear and mastoid (principal)
CPT/HCPCS: 99213; G0463

== ENCOUNTER 2024-02-08 08:29 | Outpatient (CLI) | payer OTHER, SELFPAY ==
[2024-02-08 19:19] LABS: Basophils Absolute Auto 0.1 K/mm3 (0.0-0.1); Basophils Percent Auto 0.9 % (0.2-1.2); Eosinophils Absolute Auto 0.3 K/mm3 (0-0.3); Hematocrit 37.8 % (37.0-47.0); Hemoglobin 11.5 g/dL (12.0-15.0); Immature Granulocyte Absolute 0.03 K/mm3 (0.00-0.031); Immature Granulocyte Percent A 0.3 % (0-0.5); Lymphocytes Absolute Auto 2.31 K/mm3 (0.9-3.2); Lymphocytes Percent Auto 23.1 % (18.3-44.2); Mean Corpuscular HGB Conc 30.4 g/dl (32-36); Mean Corpuscular Hemoglobin 27.3 pg (26-34); Mean Corpuscular Volume 89.6 fl (80-100); Mean Platelet Volume 9.8 fl (7.4-10.4); Monocytes Absolute Auto 0.6 K/mm3 (0.1-0.6); Monocytes Percent Auto 5.5 % (2.6-8.5); Neutrophils Absolute Auto 6.7 K/mm3 (1.3-6.7); Neutrophils Percent Auto 67.2 % (45.5-73.1); Platelet Count Result 350 k/mm3 (150-375); Red Blood Count 4.22 M/mm3 (4.2-5.4); Red Cell Distribution Width 13.7 % (11.5-14.5)
[2024-02-08 19:46] LABS: Free T4 Free Thyroxine 0.98 ng/mL (0.78-2.19); Vitamin D 25 Hydroxy 27.2 ng/mL
[2024-02-08 20:05] LABS: Alanine Aminotransferase 14 U/L (6-35); Albumin Level 3.9 g/dL (3.5-5.1); Alkaline Phosphatase 60 U/L (38-126); Anion Gap 10 mmol/L (4-12); Aspartate Amino Transferase 41 U/L (14-36); Bilirubin,Total 0.3 mg/dL (0.2-1.3); Blood Urea Nitrogen 11 mg/dL (7-17); Calcium 8.7 mg/dL (8.4-10.2); Carbon Dioxide 24 mmol/L (22-30); Chloride 101 mmol/L (98-107); Cholesterol 157 mg/dL (0-200); Estimated Glomerular Filt Rate > 60; Glucose 80 mg/dL (65-110); HDL Direct 46 mg/dL; Sodium 135 mmol/L (137-145); Triglycerides 247 mg/dL (<150)
[2024-02-08 20:17] LABS: LDL Cholesterol Direct 74 mg/dL
[2024-02-08 20:34] LABS: Hemoglobin A1C 5.6 % (<5.7)
== END 2024-02-08 08:30 | disposition home or self-care (01) ==
LOC: ANHGOSHLAB 08:31
PROVIDERS: PCP Family Medicine; Visit Provider Family Medicine
DX: R53.83 Other fatigue (principal); R73.9 Hyperglycemia, unspecified; E55.9 Vitamin D deficiency, unspecified; Z13.220 Encounter for screening for lipoid disorders
CPT/HCPCS: 36415; 80053; 80061; 82306; 83036; 84439; 84443; 85025

== ENCOUNTER 2024-03-04 14:02 | Emergency (ER) | payer OTHER, SELFPAY ==
--- NOTE | ~2024-03-04 | XR_ITS ---
XR ankle RT min 3V DATE: 03/04/2024 14:25 INDICATION: Fall. Lateral pain. TECHNIQUE: 3 views COMPARISON: None FINDINGS: Prominent plantar calcaneal enthesopathy. No fracture or dislocation of the ankle is detect ed. There is slight widening of the tibiotalar joint space laterally. Recommend clinical correlation. No periosteal reaction or bone destruction. IMPRESSION: No fracture or dislocation of the ankle There is slight widening of the tibiotalar joint laterally. Recommend clinical correlation. Reviewed, dictated and finalized at location J.
[2024-03-04 14:10] VITALS: BP 117/68; PULSE 87; RESP 16; TEMP 36.7; O2SAT 100
--- NOTE | 2024-03-04 14:13 | ED.LOWEXIN ---
HPI - Extremity Injury (Lower) General Chief Complaint: Extremity Injury, Lower Stated Complaint: Injured Right Ankle Time Seen by Provider: 03/04/24 14:15 Source: patient, RN notes reviewed and old records reviewed Mode of arrival: ambulatory Limitations: no limitations History of Present Illness HPI Narrative: 33-year-old female who presents to [facility] with complaints of right ankle injury which occurred . Patient reports she was walking on sidewalk twisted her ankle outward landing lateral aspect her ankle.Patient has noted swelling and bruising to lateral aspect of her right ankle. Patient reporrts that she has had several ankle sprain to her right ankle in past. MD complaint: other (pain to right lateral ankle) Onset (ago): day(s) (4) Injury: Right: ankle Type of Injury: other (twisted ankle outward and fell onto lateral ankle) Place: street/outdoors Severity: moderate Severity scale (1-10): 4 Exacerbating factors: weight bearing and movement Treatments prior to arrival: cold therapy and NSAIDS Related Data Home Medications Medication Instructions Recorded Confirmed cetirizine 10 mg tablet (Zyrtec) 10 mg PO DAILY 10/07/23 10/27/23 drospirenone 3 mg-ethinyl 1 tablet PO DAILY 10/07/23 10/27/23 estradiol 0.03 mg tablet (Anna Marie) Allergies Allergy/AdvReac Type Severity Reaction Status Date / Time No Known Allergies Allergy Unknown Verified 03/04/24 14:32 Review of Systems Review of Systems: CONSTITUTIONAL: Denies fever, chills, or sweats. EYES: Denies visual changes, redness, or discharge. ENT: Denies rhinorrhea, congestion, sore throat, or otalgia. CARDIOVASCULAR: Denies chest pain, palpitations, or edema. RESPIRATORY: Denies cough or dyspnea. GASTROINTESTINAL: Denies abdominal pain, nausea, vomiting, or diarrhea. GENITOURINARY: Denies dysuria or hematuria. SKIN: Denies rash or itching. MUSCULOSKELETAL: Denies back pain,positive for right lateral ankle pain and bruising joint pain, or myalgia. NEUROLOGIC: Denies headache, numbness, or weakness. PSYCHIATRIC: Denies anxiety or depression. All systems reviewed & are unremarkable except as noted in HPI and below PMFSH Past Medical History Medical History Allergies Ankle sprain Anxiety Asthma Migraine PCOS (polycystic ovarian syndrome) Seizure Feveral seizures when younger- Only had one at the age of 77 years old, Does have Family hx of seizures Family History Family History Grandparent Diabetes mellitus Anxiety Depression Mother Asthma Depression Anxiety Social History Social History Smoking status: Never smoker Second hand tobacco smoke exposure: No Alcohol intake: current Alcohol use details: occasionally maybe 1-2 drinks per month Substance use: never Do You Feel Safe in your Home?: Yes Lack of Transportation: No Lack of Food: Never True Current Housing: I Have Housing Concerned About Future Housing: No Difficulty Paying Gas/Electric Bills: No Difficulty Paying for Meds: No Currently Unemployed: No Education: Associate Degree Difficulty w/ Childcare or Family Care: No Living arrangements: with family Occupation/Education: occupation Additional occupation/education comments: Retention Manager, [employer] Gender identity (if verbalized by the patient): Female Spiritual care concerns: No Comments At time of signature, agree with nursing past medical, surgical, social and family history. There is no relevant family history pertinent to the presenting complaint Exam Narrative: GENERAL: Well-appearing, well-nourished, morbid obesity,and in no acute distress. HEAD: Normocephalic, atraumatic. EYES: PERRLA and EOMI. ENT: Nares clear, no rhinorrhea or epistaxis. Mucous membranes moist. NECK: Supple. no lymphadenopathy CHEST:
== END 2024-03-04 14:50 | disposition home or self-care (01) ==
PROVIDERS: Emergency Provider Registered Nurse; PCP Family Medicine
DX: S93.401A Sprain of unspecified ligament of right ankle, initial encounter (principal); X50.9XXA Other and unspecified overexertion or strenuous movements or postures, initial encounter; J45.909 Unspecified asthma, uncomplicated; E28.2 Polycystic ovarian syndrome
CPT/HCPCS: 73610; 99213; G0463

== ENCOUNTER 2024-04-11 09:03 | Outpatient (CLI) | payer OTHER, SELFPAY ==
--- NOTE | ~2024-04-11 | MR_ITS ---
EXAMINATION: MR ankle RT wo con DATE: 04/11/2024 09:55 INDICATION: Right ankle sprain and pain TECHNIQUE: Magnetic resonance imaging (MRI) of the right ankle was performed without intravenous cont rast. Sequences included sagittal, coronal, and axial proton-density weighted fast spin echo without and with fat saturation. COMPARISON: None. FINDINGS: Medial ankle ligaments: There is loss of the normally well-defined striated pattern of the deep deltoid ligament and there is thickening of the superficial deltoid ligament consistent with mild scarring related to chronic spra ins. The spring ligament complex is normal. Lateral ankle ligaments: The anterior and posterior inferior tibiofibular ligaments are normal. The anterior is either diminut lucio or absent with tiny heterotopic ossicle along the lateral process of the talus consistent with se quela of chronic high-grade sprain. The calcaneofibular and posterior talofibular ligaments are luis l. Tendons: Achilles tendon is normal. There is a small amount of fluid in the tendon sheath surrounding the norm al peroneus longus and brevis tendons, the normal tibialis posterior tendon and the normal flexor dig itorum longus tendon consistent with mild tenosynovitis. The flexor hallux longus tendon is normal. T he tibialis anterior and extensor hallucis longus and extensor digitorum longus tendons are normal. Plantar fascia: Chronic enthesopathy with mild thickening and mild increased signal of the central component of the p lantar aponeurosis with moderate-sized plantar calcaneal spur. No associated marrow or surrounding so ft tissue edema to suggest acute plantar fasciitis. Bones/other: Bone alignment is normal. No fracture or pathologic marrow replacing process. There is mild polyartic ular osteoarthritis at the right ankle joint and multiple tarsometatarsal joints. Fluid: Physiologic amount fluid in the joint spaces. IMPRESSION: 1. Chronic high-grade partial versus complete tear of the anterior talofibular ligament and scarring consistent with chronic sprains of the deep and superficial deltoid ligaments. 2. Mild tenosynovitis along the otherwise normal tibialis posterior, flexor hallucis longus and peron eal tendons. 3. 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 4. Chronic plantar enthesopathy. Reviewed, dictated and finalized at location A. IMPRESSION: 1. Chronic high-grade partial versus complete tear of the anterior talofibular ligament and scarring consistent with chronic sprains of the deep and superfici al deltoid ligaments. 2. Mild tenosynovitis along the otherwise normal tibialis posterior, flexor kim lucis longus and peroneal tendons. 3. 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 4. Chronic plantar enthesopathy.
== END 2024-04-11 09:04 | disposition home or self-care (01) ==
LOC: GOSHIMG 09:05
PROVIDERS: PCP Family Medicine; Visit Provider Podiatrist Foot & Ankle Surgery
DX: S93.491A Sprain of other ligament of right ankle, initial encounter (principal); M66.371 Spontaneous rupture of flexor tendons, right ankle and foot; M25.571 Pain in right ankle and joints of right foot; M19.071 Primary osteoarthritis, right ankle and foot; M76.891 Other specified enthesopathies of right lower limb, excluding foot
CPT/HCPCS: 73721

== ENCOUNTER 2024-10-17 08:52 | Outpatient (CLI) | payer OTHER, SELFPAY ==
--- OUTSIDE RECORDS SUMMARY | 2024-10-17 09:14 | XMS_ITS | Clinical Summary ---
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 Gender Identity Not on file Sexual Orientation Not on file Plan of Treatment Health Maintenance Due Date Last Done Comments DTAP/TDAP/TD VACCINES (1 - Tdap) 2009 HEPATITIS B VACCINES (1 of 3 - 19+ 3-dose series) 2009 PAP SMEAR 10/19/2011 CERVICAL CANCER SCREENING 2020 HPV/Cotest (30-65) 2020 PAP SMEAR 2020 INFLUENZA VACCINE (#1) 2024 HPV VACCINES Aged Out No longer eligi ble based on patient's age to complete this topic PNEUMOCOCCAL VACCINE 0-49 YEARS Aged Out No longer eligible based on patient's age to complete this topic Insurance [facility] BLUE ACCESS/TRUE BLUE PPO Care Teams Maintenance Repairman Relationship Specialty Start Date End Date Sheridan Meza PA PCP - General Physician Entry Level Account Manager 09/15/20
[2024-11-12 11:12] VITALS: BMI 52.3
--- NOTE | 2024-11-12 11:12 | WPDHOMESLEEP ---
Sleep Study - Home Unattended Date of Study: 10/17/24 Ordering Provider: Jannette Lopez DO Interpreting Provider: Jannette Lopez DO Home Sleep Study Type: Watch PAT Height: 1.63 m Weight: 138.346 kg Body Mass Index: 52.3 Neck Circumference (inches): 16 Center Point: 6 Reason for Sleep Study Daytime hypersomia Sleep History The patient is a 34-year-old female that had a sleep study ordered by her primary care physician for evaluation of sleep apnea. The patient admits to excessive daytime sleepiness and trouble maintaining sleep. She denies snoring loudly. She denies interruptions in breathing while asleep. She denies choking or gasping at night. She denies having trouble breathing on her back. She denies morning headaches. She denies having a dry or sore mouth/ throat in the morning. She does have nocturnal heartburn. She denies nocturia. She denies having difficulty falling asleep. She does have difficulty returning to sleep if she wakes up throughout the night. She denies any hypnotic or sedative use. She denies feeling anxious about sleep. She does feel tired or sleepy during the day. She does feel tired in the morning. She denies having the urge to fall asleep during the day. She denies feeling drowsy while driving. She denies clenching or grinding her teeth. She does kick her jerk her legs excessively. She does have a restless feeling in her legs that causes an urge to move her legs. The restless feeling gets worse with rest and better with activity. It is worse in the evening or at night time. The restless feeling does not cause a disturbance in her sleep. She goes to bed at 10:30 p.m. on work days and at 11:30 p.m. on her days off. It takes her 1 hour to fall asleep. She gets 7 hours and 30 minutes of sleep daily. Her sleep is somewhat restorative on her days off. She denies taking any planned naps. She denies dream enactment behavior. She denies sleep walking. She consumes 1-2 cups of caffeinated beverage per day. She denies tobacco use. She has 1 alcoholic beverage 1-2 nights per week. She exercises 1-2 nights per week. PMFSH Past Medical History Medical History Ankle sprain PCOS (polycystic ovarian syndrome) Seizure Feveral seizures when younger- Only had one at the age of 77 years old, Does have Family hx of seizures Migraine Anxiety Asthma Allergies Family History Family History Grandparent Diabetes mellitus Anxiety Depression Mother Asthma Depression Anxiety Social History Social History Smoking status: Never smoker Second hand tobacco smoke exposure: No Alcohol intake: current Alcohol use details: occasionally maybe 1-2 drinks per month Substance use: never Do You Feel Safe in your Home?: Yes Lack of Transportation: No Lack of Food: Never True Current Housing: I Have Housing Concerned About Future Housing: No Difficulty Paying Gas/Electric Bills: No Difficulty Paying for Meds: No Currently Unemployed: No Education: Associate Degree Difficulty w/ Childcare or Family Care: No Living arrangements: with family Occupation/Education: occupation Additional occupation/education comments: Bookkeeper, [employer] Gender identity (if verbalized by the patient): Female Spiritual care concerns: No Medications Home Medications ?Medication ?Instructions ?Recorded ?Confirmed ?Type cetirizine 10 mg tablet (Zyrtec) 10 mg PO DAILY 10/07/23 10/04/24 History drospirenone 3 mg-ethinyl 1 tablet PO DAILY 10/07/23 10/04/24 History estradiol 0.03 mg tablet (Anna Marie) fluticasone propionate 50 2 spray intranasal DAILY 14 days 10/07/23 10/04/24 Rx mcg/actuation nasal #15.8 mL spray,suspension (Flonase Allergy Relief) eszopiclone 2 mg tablet (Lunesta) 2 mg PO QHS #1 tablet 10/04/24 10/04/24 Rx naltrexone 8 mg-bupropion 90 mg 1 tablet PO .COMPLEX #70 tabs 10/04/24 10/04/24 Rx tablet,extended release (Contrave) omeprazole 20 mg tablet,delayed 20 mg PO DAILY #90 tabs 10/04/24 10/04/24 Rx release rizatriptan 10 mg disintegrating See Rx Instructions PO .COMPLEX #9 10/04/24 10/04/24 Rx tablet (Maxalt-SPOOL MAKER) tabs Sleep Procedure The sleep study was completed using [employer] Social[employer] a technically adequate device with seven channels: peripheral arterial tone, actigraphy, body position, snore, respiratory movement, pulse oximetry, sleep staging, and heart rate. Prior to using the device, the patient received verbal and written instructions for its application and was provided with the help desk phone number for additional telephonic instruction with 24-hour availability of qualified personnel to answer questions. The study was scored using CMS guidelines. Sleep Architecture The total recording time is 8 hrs, 0 min. The total sleep time is 6 hrs, 59 min. Sleep latency is 10 minutes. REM latency is 108 minutes. The patient had 11 episodes of waking. Sleep architecture shows 19.3% deep sleep, 58.7% light sleep, and (as % Total Sleep Time) showed NREM (Light 58.7%; Deep 19.3%), and a 22.0% stage REM. The patient spent 39.6% of total sleep time in the supine position. Sleep efficiency was 87.29. Respiratory Analysis The overall AHI (pAHI 4%:) is 0.7. The overall AHI (pAHI 3%:) is 3.7. The central AHI is 0.0. The AHI was 1.8 in NREM and 11.0 in REM sleep. The AHI was 4.6 in Supine and 3.1 in Non-supine sleep. Percent of Timmy Rodriguez respirations is 0.0. Oximetry Data The oxygen desaturation index (SERA 4%:) is 0.7. The mean saturation is 95%, and the lowest saturation is 92%. Time spent with saturation < 88% is 0.0 minutes. Snoring Profile Snoring average intensity is 44 dB. The patient snored above 45 decibels for 70.7 minutes, 16.8% of sleep time. Cardiac Profile The average pulse rate is 97 beats per minutes. The lowest pulse rate is 55 bpm. The highest pulse rate reported is 122 bpm. Atrial fibrillation was not detected. Premature beats occur 2.0 per minute. Assessment and Plan Assessment and Plan (1) Sleep disturbances: Code(s): G47.9 - Sleep disorder, unspecified Status: Acute Assessment and Plan: The patient had an overall AHI of 0.7 with desaturation down to 92%. This is not consistent with sleep disordered breathing. The patient's sleep history is highly suggestive of Restless Leg Syndrome. I recommend that the patient have a serum ferritin drawn for evaluation of iron deficiency anemia. If the patient has a serum ferritin less than 75 ng/mL, I recommend starting a daily iron supplement and a Vitamin C supplement for better absorption. If the serum ferritin is greater than 75 ng/mL, I recommend starting a dopamine agonist and titrating the dose until symptoms resolve. There are nonpharmacological methods to treat limb movements including daily exercise, stretching calf muscles before bed, avoiding excessive amounts of caffeine and alcohol, vitamin B supplementation, magnesium lotion massaged into legs before bed, and use of a weighted blanket. Data The data obtained during this sleep study is adequate for interpretation. Certification This sleep study has been reviewed by a board certified sleep medicine physician.
== END 2024-10-19 10:35 | disposition home or self-care (01) ==
LOC: ANHCSM 08:53
PROVIDERS: PCP Family Medicine; Visit Provider Family Medicine
DX: G47.9 Sleep disorder, unspecified (principal)
CPT/HCPCS: 95800

== ENCOUNTER 2024-12-18 08:13 | Outpatient (CLI) | payer OTHER, SELFPAY ==
--- OUTSIDE RECORDS SUMMARY | 2024-12-18 08:22 | XMS_ITS | Clinical Summary ---
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 BLUE ACCESS/TRUE BLUE PPO Care Teams Plug Cutting Machine Operator Relationship Specialty Start Date End Date Sheridan Meza PA PCP - General Physician Lead Applier 09/15/20
== END 2024-12-18 08:14 | disposition home or self-care (01) ==
LOC: ANHGOSHLAB 08:14
PROVIDERS: PCP Family Medicine; Visit Provider Family Medicine
DX: D64.9 Anemia, unspecified (principal)
CPT/HCPCS: 36415; 82728

== ENCOUNTER 2025-04-01 18:04 | Emergency (ER) | payer OTHER, SELFPAY ==
[2025-04-01 18:14] VITALS: BP 151/85; PULSE 102; RESP 16; TEMP 36.2; O2SAT 100
--- NOTE | 2025-04-01 18:44 | ED_ITS ---
HPI - URI/Sore Throat General Chief Complaint: Upper Respiratory Infection Stated Complaint: Sinus Infection Symptoms Time Seen by Provider: 04/01/25 18:35 Source: patient and RN notes reviewed Mode of arrival: ambulatory Limitations: no limitations History of Present Illness HPI Narrative: 34-year-old male presents Express Care complaining of upper respiratory symptoms for last 3 weeks. Patient reports congestion, sinus pressure, mucopurulent drainage, cough that has gotten progressively worse over the last 3 weeks. Patient denies any sore throat, earache, nausea, vomiting, diarrhea, chest pain, difficulty breathing, wheezing, abdominal pain, or any other symptoms. Patient has been doing [id number] cold/flu medication, Flonase, sinus rinses without relief. Patient denies any significant past medical history. Related Data Home Medications ?Medication ?Instructions ?Recorded ?Confirmed ?Last Taken ?Type cetirizine 10 mg tablet (Zyrtec) 10 mg PO DAILY 01/10/25 Unknown History drospirenone 3 mg-ethinyl 1 tablet PO DAILY 10/07/23 0 01/10/25 Unknown History estradiol 0.03 mg tablet (Anna Marie) ascorbate calcium (vitamin C) 500 500 mg PO DAILY 12/1701/10/25 Unknown History mg tablet ferrous sulfate 325 mg (65 mg 325 mg PO DAILY 01/10/25 01/10/25 Unknown History iron) tablet omeprazole 20 mg capsule,delayed mg 04/01/25 Unknown History release Allergies Allergy/AdvReac Type Severity Reaction Status Date / Time No Known Allergies Allergy Unknown Verified 04/01/25 18:40 Review of Systems Review of Systems: CONSTITUTIONAL: Denies fever, chills, body aches, or sweats. EYES: Denies visual changes, redness, or discharge. ENT: Positive for sinus pressure, congestion, mucopurulent nasal drainage. Negative for rhinorrhea, sore throat, and otalgia. CARDIOVASCULAR: Denies chest pain, palpitations, or edema. RESPIRATORY: Positive for cough. Negative for dyspnea wheezing. GASTROINTESTINAL: Denies abdominal pain, nausea, vomiting, or diarrhea. GENITOURINARY: Denies dysuria or hematuria. SKIN: Denies rash or itching. MUSCULOSKELETAL: Denies back pain, joint pain, or myalgia. NEUROLOGIC: Denies headache, numbness, or weakness. PSYCHIATRIC: Denies anxiety or depression. All other systems reviewed are negative, except as documented in HPI. FOR[facility]LY [facility] Past Medical History Medical History Ankle sprain PCOS (polycystic ovarian syndrome) Seizure Feveral seizures when younger- Only had one at the age of 77 years old, Does have Family hx of seizures Migraine Anxiety Asthma Allergies Family History Family History Grandparent Diabetes mellitus Anxiety Depression Mother Asthma Depression Anxiety Social History Social History Smoking status: Never smoker Second hand tobacco smoke exposure: No Alcohol intake: current Alcohol use details: occasionally maybe 1-2 drinks per month Substance use: never Do You Feel Safe in your Home?: Yes Lack of Transportation: No Lack of Food: Never True Current Housing: I Have Housing Concerned About Future Housing: No Difficulty Paying Gas/Electric Bills: No Difficulty Paying for Meds: No Currently Unemployed: No Education: Associate Degree Difficulty w/ Childcare or Family Care: No Living arrangements: with family Occupation/Education: occupation Additional occupation/education comments: [employer], [employer] Gender identity (if verbalized by the patient): Female Spiritual care concerns: No Comments At the time of my signature, I reviewed and agree with the nursing past medical, surgical, social, and family history. There is no relevant family history pertinent to the patient complaint. Exam Narrative: GENERAL: This is a well-nourished, well-developed adult, in no apparent distress. They are non ill-appearing, nontoxic appearing. Patient is morbidly obese. Physical exam limited due to large body habitus. HEAD: normocephalic, atraumatic. EYES: Sclera clear/white. Vision is grossly intact. Conjunctiva normal bilaterally. Extraocular movements intact. EARS: External ears normal, auditory canals clear and without drainage, TMs without erythema or perforation. Hearing grossly intact. NOSE: External nose normal with no obvious nasal discharge, nasal turbinates erythematous with exudate present., no rhinorrhea. Maxillary sinus tenderness to palpation. THROAT: Mucous membranes moist, posterior pharynx boggy without redness or exudate.. Uvula is midline. Postnasal drip present. NECK: Neck supple, mild tenderness with cervical lymphadenopathy, no masses or thyromegaly. CARDIOVASCULAR: Regular rate and rhythm without murmurs, gallops, or rubs. RESPIRATORY: Clear to auscultation. Breath sounds equal bilaterally. No wheezes, rales, or rhonchi. SKIN: warm, Dry, intact with no suspicious lesions or rash, good texture and turgor. NEURO: awake, alert, and oriented to person, place and time. There were no obvious focal neurologic abnormalities. EXTREMITIES: No joint tenderness, effusion, or edema noted. BACK: Nontender without deformity. Course Course Emergency Course: Portions of this record may have been created with voice recognition software Level of Care: Express Care Visit Vital Signs Vital signs: Vital Signs Temperature 97.2 F L 04/01/25 18:14 Pulse Rate 102 H 04/01/25 18:14 Respiratory Rate 16 04/01/25 18:14 Blood Pressure 151/85 H 04/01/25 18:14 Pulse Oximetry 100 04/01/25 18:14 Temperature 97.2 F L 04/01/25 18:14 Pulse Rate 102 H 04/01/25 18:14 Respiratory Rate 16 04/01/25 18:14 Blood Pressure 151/85 H 04/01/25 18:14 Pulse Oximetry 100 04/01/25 18:14 MDM - URI/Sore Throat MDM Narrative Medical decision making narrative: Given patient's length of symptoms is likely she has a bacterial sinusitis. Will prescribe her Augmentin. Discussed physical exam findings. Advised supportive measures and signs/symptoms to go to the ER. Pt is appropriate for outpt treatment and f/u. Differential Diagnosis Differential diagnosis: Likely upper respiratory infection, sinusitis, viral infection and other (Pneumonia) Discharge Plan Discharge Clinical Impression: Sinusitis Qualifiers: Sinusitis location: unspecified location Chronicity: acute Recurrence: non- recurrent Qualified Code(s): J01.90 - Acute sinusitis, unspecified Patient Disposition: Home Condition: Stable Instructions: Antibiotic Form, Sinusitis (ED) Additional Instructions: Take the antibiotics as directed and complete the course even if you start to feel better. You may use a Neti pot saline rinse 3 times a day with lukewarm distilled water Continue to take Tylenol or Motrin for pain. Use a humidifier or vaporizer at night. Drink plenty of water. 8-10 glasses per day. Use flonase 2 times per day for 5 days then as needed may also use azestaline antihistamine spray instead, 2 sprays each nostril daily. Take mucinex 2 times per day and be sure to take with 8oz of water. Follow up with Primary provider in 3-5 days Please go to the ER if he develops any difficulty breathing, worsening symptoms, or any other concerns Patient Language: Mongolian Prescriptions: New amoxicillin-pot clavulanate 875-125 mg tablet 1 tablet PO Q12H 7 Days Qty: 14 0RF No Action omeprazole 20 mg capsule,delayed release(DR/EC) drospirenone-ethinyl estradiol [Anna Marie] 3-0.03 mg tablet 1 tablet PO DAILY cetirizine [Zyrtec] 10 mg Tablet 10 mg PO DAILY fluticasone propionate [Flonase Allergy Relief] 50 mcg/actuation spray,suspension 2 spray NASAL DAILY 14 Days Qty: 15.8 0RF Rx Instructions: administer into each nostril omeprazole 20 mg tablet,delayed release (DR/EC) 20 mg PO DAILY Qty: 90 3RF ferrous sulfate 325 mg (65 mg iron) tablet 325 mg PO DAILY ascorbate calcium (vitamin C) 500 mg tablet 500 mg PO DAILY Contrave 8-90 mg tablet extended release 2 tablet PO BID Qty: 120 3RF rizatriptan [Maxalt-MEDICAL ESTHETICIAN] 10 mg tablet,disintegrating See Rx Instructions PO .COMPLEX Qty: 27 1RF Rx Instructions: take 1 tab at onset of headache; if no relief may repeat 1 tab after at least 2 hrs; max = 2 tabs/24 hr PO Follow-up/Referrals: Jannette Lopez DO [Primary Care Provider, [facility]] Time of Disposition: 18:41
== END 2025-04-01 18:44 | disposition home or self-care (01) ==
PROVIDERS: PCP Family Medicine
DX: J01.90 Acute sinusitis, unspecified (principal); E28.2 Polycystic ovarian syndrome; J45.909 Unspecified asthma, uncomplicated
CPT/HCPCS: 99213; G0463

== ENCOUNTER 2025-05-07 19:51 | Emergency (ER) | payer OTHER, SELFPAY ==
[2025-05-07 19:53] VITALS: BP 171/95; PULSE 114; RESP 16; TEMP 36.4; O2SAT 100
--- OUTSIDE RECORDS SUMMARY | 2025-05-07 20:11 | XMS_ITS | Clinical Summary ---
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 Gender Identity Not on file Sexual Orientation Not on file Plan of Treatment Health Maintenance Due Date Last Done Comments DTAP/TDAP/TD VACCINES (1 - Tdap) 2009 HEPATITIS B VACCINES (1 of 3 - 19+ 3-dose series) 09/2009 HPV/Cotest (21-29) 10/19/2011 HPV VACCINES (1 - 3-dose SCDM series) 2017 CERVICAL CANCER SCREENING 2020 HPV/Cotest (30-65) 2020 PAP SMEAR 2020 INFLUENZA VACCINE (#1) 2025 Insurance [facility] BLUE ACCESS/TRUE BLUE PPO Care Teams Automotive Fuel Injection Servicer Relationship Specialty Start Date End Date Sheridan Meza PA PCP - General Physician Parole Supervisor 09/15/20
--- NOTE | 2025-05-07 22:03 | ED.WOUNDLAC ---
HPI - Wound/Laceration General Chief Complaint: Wound/Laceration Stated Complaint: wound chunk in back Time Seen by Provider: 05/07/25 21:55 History of Present Illness HPI narrative: Patient is a 34-year-old female who presents to the ER with a splinter in her right upper anterior back. She reports she was sliding down her cabinets when a piece went into her skin. Patient endorses significant pain so her boyfriend observe the site and noted there was still some splinter in there. He tried to pull the splinter out but patient there is still a chunk under her skin. She denies any medical history relevant to this ER visit. Patient denies any decreased range of motion, recent fevers, or significant redness to the area. Related Data Home Medications ?Medication ?Instructions ?Recorded ?Confirmed ?Last Taken ?Type cetirizine 10 mg tablet (Zyrtec) 10 mg PO DAILY 10/07/23 01/10/25 Unknown History drospirenone 3 mg-ethinyl 1 tablet PO DAILY 10/07/23 01/10/25 Unknown History estradiol 0.03 mg tablet (Anna Marie) ascorbate calcium (vitamin C) 500 500 mg PO DAILY 01/10/25 01/10/25 Unknown History mg tablet ferrous sulfate 325 mg (65 mg 325 mg PO DAILY 01/10/25 01/10/25 Unknown History iron) tablet omeprazole 20 mg capsule,delayed mg 04/01/25 Unknown History release Allergies Allergy/AdvReac Type Severity Reaction Status Date / Time No Known Allergies Allergy Unknown Verified 05/07/25 19:57 Review of Systems Review of Systems: All systems reviewed & are unremarkable except as noted in HPI and below PMFSH Past Medical History Medical History Ankle sprain PCOS (polycystic ovarian syndrome) Seizure Feveral seizures when younger- Only had one at the age of 77 years old, Does have Family hx of seizures Migraine Anxiety Asthma Allergies Family History Family History Grandparent Diabetes mellitus Anxiety Depression Mother Asthma Depression Anxiety Social History Social History Smoking status: Never smoker Second hand tobacco smoke exposure: No Alcohol intake: current Alcohol use details: occasionally maybe 1-2 drinks per month Substance use: never Do You Feel Safe in your Home?: Yes Lack of Transportation: No Lack of Food: Never True Current Housing: I Have Housing Concerned About Future Housing: No Difficulty Paying Gas/Electric Bills: No Difficulty Paying for Meds: No Currently Unemployed: No Education: Associate Degree Difficulty w/ Childcare or Family Care: No Living arrangements: with family Occupation/Education: occupation 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 HEAD: Normocephalic, atraumatic. NECK: Supple. No adenopathy, no masses. RESPIRATORY: Airway patent, respirations nonlabored. Clear to auscultation bilaterally, no rales, rhonchi, wheezing. CARDIOVASCULAR: Regular rate and rhythm without murmurs, rubs, or gallops. Peripheral pulses 2+ and equal bilaterally. ABDOMINAL: Soft, nontender, nondistended, no hepatosplenomegaly. Normoactive BS. MUSCULOSKELETAL: Moves all extremities. Strength/ROM intact without gross deformities. SKIN: Warm, dry, normal color. No rashes. Small piece of wood stuck under skin on right posterior shoulder. NEURO: A&O X3. Speech clear. Cranial nerves II-XII intact. No ataxic movements. PSYCHIATRIC: Appropriate mood and affect. Normal interaction. Course Vital Signs Vital signs: Vital Signs Temperature 36.4 C 05/07/25 19:53 Pulse Rate 114 H 05/07/25 19:53 Respiratory Rate 16 05/07/25 19:53 Blood Pressure 171/95 H 05/07/25 19:53 Pulse Oximetry 100 05/07/25 19:53 Oxygen Delivery Room Air 05/07/25 19:53 Temperature 36.4 C 05/07/25 19:53 Pulse Rate 114 H 05/07/25 19:53 Respiratory Rate 16 05/07/25 19:53 Blood Pressure 171/95 H 05/07/25 19:53 Pulse Oximetry 100 05/07/25 19:53 Oxygen Delivery Room Air 05/07/25 19:53 Procedures Foreign Body Removal Foreign Body #1: Foreign Body Removal Date: 05/07/25 Foreign Body Removal Time: 22:38 Time Out Performed: yes Site: right Description of foreign body: other (wood splinter) Sedation/Analgesia: other (lidocaine spray) Technique: manual removal Confirmed by:: direct visualization Complications: none Post-procedure exam: awake, alert MDM - Wound/Laceration MDM Narrative Medical decision making narrative: Patient is a 34-year-old female who presents to the ER with a splinter in her right upper anterior back. She reports she was sliding down her cabinets when a piece went into her skin. Patient endorses significant pain so her boyfriend observe the site and noted there was still some splinter in there. He tried to pull the splinter out but patient there is still a chunk under her skin. She denies any medical history relevant to this ER visit. Patient denies any decreased range of motion, recent fevers, or significant redness to the area. The head of a wood sliver was sticking out of patient's skin. The area was numbed with lidocaine spray, then tweezers were used to remove the splinter which is approximately 2 cm in length. Patient expressed immediate relief following procedure. Patient Education/Shared MDM: Patient reports she is unsure when she last had her tetanus vaccine. It will be administered here in the ER. Patient advised to follow-up with her PCP as needed. She will not be discharged home with any new prescriptions. Patient may place bacitracin to the site 2 to 3 times a day. Strict return precautions provided. Patient verbalized understanding and is in agreement with plan. Vital signs stable at time of discharge. All questions answered. Differential Diagnosis Differential diagnosis: Likely laceration, abscess, abrasion and other (Foreign body) Discharge Plan Discharge Clinical Impression: Foreign body (FB) in soft tissue Patient Disposition: Home Condition: Stable Instructions: Antibiotic Form, Puncture Wound (ED) Additional Instructions: Please return to the ER with any worsening symptoms. Follow-up with primary care provider as needed. Monitor the site for signs/symptoms of infection Take all medications as prescribed, including regularly scheduled medications. You may take Tylenol as needed for pain control. Please place Bacitracin to the site 2-3 times per day. Patient Language: Sinhala Prescriptions: No Action omeprazole 20 mg capsule,delayed release(DR/EC) amoxicillin-pot clavulanate 875-125 mg tablet 1 tablet PO Q12H 7 Days Qty: 14 0RF drospirenone-ethinyl estradiol [Anna Marie] 3-0.03 mg tablet 1 tablet PO DAILY cetirizine [Zyrtec] 10 mg Tablet 10 mg PO DAILY fluticasone propionate [Flonase Allergy Relief] 50 mcg/actuation spray,suspension 2 spray NASAL DAILY 14 Days Qty: 15.8 0RF Rx Instructions: administer into each nostril omeprazole 20 mg tablet,delayed release (DR/EC) 20 mg PO DAILY Qty: 90 3RF ferrous sulfate 325 mg (65 mg iron) tablet 325 mg PO DAILY ascorbate calcium (vitamin C) 500 mg tablet 500 mg PO DAILY Contrave 8-90 mg tablet extended release 2 tablet PO BID Qty: 120 3RF rizatriptan [Maxalt[employer]] 10 mg tablet,disintegrating See Rx Instructions PO .COMPLEX Qty: 27 1RF Rx Instructions: take 1 tab at onset of headache; if no relief may repeat 1 tab after at least 2 hrs; max = 2 tabs/24 hr PO Follow-up/Referrals: Jannette Lopez DO [Primary Care Provider, Family Practice] Time of Disposition: 22:42
[2025-05-07] MEDS: TETANUS,DIPHTHERIA,AC PERTUSSIS ADULT (0.5 ML) BOOSTRIX IM (22:13)
[2025-05-07] MEDS: BENZOCAINE (*SP) 60 ML SPRAY CAN (HURRICAINE) 1 SPRAY XX (22:18)
[2025-05-07 22:55] VITALS: BP 147/93; PULSE 113; RESP 18; TEMP 36.2; O2SAT 99
== END 2025-05-07 22:57 | disposition home or self-care (01) ==
PROVIDERS: Emergency Provider Registered Nurse; PCP Family Medicine
DX: S20.451A Superficial foreign body of right back wall of thorax, initial encounter (principal); Z23 Encounter for immunization; E28.2 Polycystic ovarian syndrome; J45.909 Unspecified asthma, uncomplicated; F41.9 Anxiety disorder, unspecified; W45.8XXA Other foreign body or object entering through skin, initial encounter
CPT/HCPCS: 90471; 90715; 99282; A9270